=== PATIENT | female | born 1965 | race American Indian/Alaskan Native ===

== ENCOUNTER 2017-02-01 10:13 | Outpatient (CLI) | payer OTHER ==
--- NOTE | 2017-02-01 11:25 | XRay Report ---
AP AND LATERAL LUMBOSACRAL SPINE: The vertebral bodies are well mineralized and normal in alignment and vertebral height with well preserved interspace distances. The visualized portions of the posterior elements are normal. IMPRESSION: Unremarkable lumbar spine films.
--- NOTE | 2017-02-01 11:25 | XRay Report ---
RIGHT SHOULDER: Routine views demonstrate normal bony and soft tissue structures with normal joint alignment of the shoulder. IMPRESSION: Normal study.
--- NOTE | 2017-02-01 11:25 | XRay Report ---
RIGHT ANKLE, 3 views: History: Breast cancer, arthritis, asthma. Bone mineralization is normal. No acute osseous abnormality or joint pathology is identified. The soft tissues are unremarkable. IMPRESSION: Normal study.
== END 2017-02-01 10:14 | disposition home or self-care (01) ==
LOC: XRAY 10:13
PROVIDERS: ATTEND Internal Medicine
DX: M13.871 Other specified arthritis, right ankle and foot (principal); J45.909 Unspecified asthma, uncomplicated; Z85.3 Personal history of malignant neoplasm of breast
CPT/HCPCS: 72100

== ENCOUNTER 2017-03-01 09:24 | Outpatient (CLI) | payer OTHER ==
[2017-03-01] MEDS ORDERED: PROVENTIL IH ONE (09:47)
== END 2017-03-01 09:25 | disposition home or self-care (01) ==
LOC: PF 09:24
PROVIDERS: ATTEND Internal Medicine
DX: J45.909 Unspecified asthma, uncomplicated (principal); M19.90 Unspecified osteoarthritis, unspecified site; Z85.3 Personal history of malignant neoplasm of breast
CPT/HCPCS: 94060; 94640

== ENCOUNTER 2019-04-09 21:43 | Emergency (ER) | payer MEDICAID ==
[2019-04-09 21:51] VITALS: BP 107/65
--- NOTE | 2019-04-09 21:54 | Emergency Department Report ---
Blank Doc - Documentation Documentation: This is a 54-year-old female that presents with nausea and abdominal pain. Also stated has a cough. This initial assessment/diagnostic orders/clinical plan/treatment(s) is/are subject to change based on patient's health status, clinical progression and re- assessment by fellow clinical providers in the ED. Further treatment and workup at subsequent clinical providers discretion. Patient/guardians urged not to elope from the ED as their condition may be serious if not clinically assessed and managed. Initial orders include: 1- Patient sent to [facility] for further evaluation and treatment 2-labs 3- UA 4- CXR
[2019-04-09 22:09] LABS: Basophils % (Auto) 0.7 % (0.0-1.8); Eosinophils # (Auto) 0.3 K/mm3 (0.0-0.4); Eosinophils % (Auto) 5.5 % (0.0-4.3); Hematocrit 33.9 % (30.3-42.9); Hemoglobin 11.3 gm/dl (10.1-14.3); Lymphocytes # (Auto) 1.4 K/mm3 (1.2-5.4); Lymphocytes % (Auto) 27.1 % (13.4-35.0); Mean Corpuscular HGB Conc 33 % (30-34); Mean Corpuscular Volume 90 fl (79-97); Monocytes # (Auto) 0.7 K/mm3 (0.0-0.8); Monocytes % (Auto) 12.8 % (0.0-7.3); Platelet Count 270 K/mm3 (140-440); Red Blood Count 3.79 M/mm3 (3.65-5.03); Red Cell Distribution Width 14.3 % (13.2-15.2)
[2019-04-09 22:30] LABS: Alanine Aminotransferase 10 units/L (7-56); Albumin 3.8 g/dL (3.9-5); BUN/Creatinine Ratio 13; Blood Urea Nitrogen 9 mg/dL (7-17); Calcium 9.3 mg/dL (8.4-10.2); Hemolysis Index 10
--- NOTE | 2019-04-09 23:02 | XRay Report ---
CHEST PA AND LATERAL VIEWS INDICATION: cogh. COMPARISON: None FINDINGS: Support devices: None Heart: Normal Lungs/Pleura: No acute pulmonary or pleural findings. IMPRESSION: 1. Negative study. Signer Name: Rm Ferrer MD Signed: 04/09/2019 10:57 PM Workstation Name: [id number]
[2019-04-10] MEDS ORDERED: ULTRAM PO ONE (00:15)
[2019-04-10] MEDS ORDERED: ZOFRAN ODT PO ONE (00:15)
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
--- NOTE | 2019-04-10 01:07 | XRay Report ---
ABDOMEN 1 VIEW(S) INDICATION / CLINICAL INFORMATION: abd pain. COMPARISON: None available. FINDINGS: TUBES / LINES: None. BOWEL GAS PATTERN: No significant abnormality. FREE AIR / EXTRALUMINAL GAS: None seen. ADDITIONAL FINDINGS: No significant additional findings. IMPRESSION: 1. No significant abnormality. Signer Name: Rubin Gould MD Signed: 04/10/2019 1:03 AM Workstation Name: [id number]
[2019-04-10 01:48] LABS: Bilirubin,Urine NEG (Negative); Blood,Urine NEG (Negative); Color,Urine Straw (Yellow); Protein,Urine <15 mg/dL mg/dL (Negative); Urobilinogen,Urine < 2.0 mg/dL (<2.0); WBC,Urine < 1.0 /HPF (0.0-6.0)
== END 2019-04-10 03:02 | disposition home or self-care (01) ==
LOC: ED 21:43
DX: S39.011A Strain of muscle, fascia and tendon of abdomen, initial encounter (principal); J45.909 Unspecified asthma, uncomplicated; M19.90 Unspecified osteoarthritis, unspecified site; R05 Cough; X58.XXXA Exposure to other specified factors, initial encounter; Y93.89 Activity, other specified; Y92.89 Other specified places as the place of occurrence of the external cause; Y99.8 Other external cause status
CPT/HCPCS: 36415; 71046; 74018; 80053; 81001; 83690; 85025; Q0162

== ENCOUNTER 2020-07-06 16:16 | Emergency (ER) | payer OTHER, MEDICAID ==
[2020-07-06 16:44] VITALS: BP 110/69
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
== END 2020-07-06 18:21 | disposition home or self-care (01) ==
LOC: ED 16:16
DX: S13.4XXA Sprain of ligaments of cervical spine, initial encounter (principal); M19.91 Primary osteoarthritis, unspecified site; J45.909 Unspecified asthma, uncomplicated; Z98.890 Other specified postprocedural states; Z79.899 Other long term (current) drug therapy; V49.59XA Passenger injured in collision with other motor vehicles in traffic accident, initial encounter; Y93.89 Activity, other specified; Y92.410 Unspecified street and highway as the place of occurrence of the external cause; Y99.8 Other external cause status
CPT/HCPCS: 72040; 72100

== ENCOUNTER 2020-08-31 11:19 | Emergency (ER) | payer OTHER, MEDICAID ==
[2020-08-31 11:32] VITALS: BP 106/57
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
== END 2020-08-31 13:43 | disposition home or self-care (01) ==
LOC: ED 11:19
DX: S16.1XXA Strain of muscle, fascia and tendon at neck level, initial encounter (principal); S39.012A Strain of muscle, fascia and tendon of lower back, initial encounter; M19.91 Primary osteoarthritis, unspecified site; J45.909 Unspecified asthma, uncomplicated; Z98.890 Other specified postprocedural states; Z79.899 Other long term (current) drug therapy; V49.49XA Driver injured in collision with other motor vehicles in traffic accident, initial encounter; Y93.89 Activity, other specified; Y92.410 Unspecified street and highway as the place of occurrence of the external cause; Y99.8 Other external cause status
CPT/HCPCS: 99282

== ENCOUNTER 2020-11-18 07:20 | Emergency (ER) | payer MEDICAID ==
[2020-11-18 07:34] VITALS: BP 104/32
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
[2020-11-18] MEDS ORDERED: ACETAMINOPHEN 500 MG TAB PO ONE (07:48)
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
--- NOTE | 2020-11-18 09:36 | Cat Scan Report ---
CT cervical spine wo con INDICATION / CLINICAL INFORMATION: 55 years Female; trauma, neck pain.. TECHNIQUE: Axial CT images of the cervical spine were obtained. Sagittal and coronal reformatted images were pr oduced. All CT scans at this location are performed using CT dose reduction for ALARA by means of aut omated exposure control. COMPARISON: None available. FINDINGS: POST-SURGICAL CHANGES: None. ALIGNMENT: There is mild curvature the cervical spine, convex toward the left. There is no significan t spondylolisthesis. VERTEBRAE: There is no CT evidence of acute fracture of the cervical spine. INTRAVERTEBRAL DISCS: The intervertebral disc spaces are fairly well-maintained without CT evidence o f significant bony spinal stenosis. PARASPINAL SOFT TISSUES: No prevertebral soft tissue fluid collections are identified. ADDITIONAL FINDINGS: There is a nodular lesion involving the posterior limb of the right thyroid glan d with relative decreased attenuation in foci of calcification. This finding measures 1.7 cm in great est transverse dimension and is nonspecific. IMPRESSION: 1. There is no CT evidence of acute fracture of the cervical spine. 2. There is a 1.7 cm lesion involving the posterior lobe of the right thyroid gland as detailed above . INCIDENTAL THYROID NODULE (ITN) DETECTED ON CT OR MRI (1) * Suspicious CT or MRI findings (2) * Abnormal lymph nodes * ipsilateral nodes >1.5 cm in short axis (jugulodigastric) * ipsilateral nodes >1 cm in short axis (other) * Invasion of local tissues by the thyroid nodule * Evaluate with thyroid ultrasound (4) * No suspicious CT or MRI findings (2) * Limited life expectancy and comorbidities (3) * No further evaluation * General population * Age < 35 years * <1 cm -- No further evaluation * >= 1 cm -- Evaluate with thyroid ultrasound (4) * Age >= 35 years * <1.5 cm -- No further evaluation * >= 1.5 cm -- Evaluate with thyroid ultrasound (4) * Notes * (1) The recommendations are offered as general guidance and do not apply to all patients, such as those with clinical risk factors for thyroid cancer. * (2) Suspicious CT/MRI features include: abnormal lymph nodes and/or invasion of local tissues by t he thyroid nodule. Abnormal lymph node features include: calcifications, cystic components, and/or in creased enhancement. Sheng enlargement is less specific for thyroid cancer metastases, but further ev aluation could be considered if an ITN has ipsilateral nodes >1.5 cm in short axis for jugulodigastri c lymph nodes, and >1 cm for other lymph nodes. * (3) Limited life expectancy and comorbidities that increase the risk of treatment or are more like ly to cause morbidity and mortality than the thyroid cancer itself, given the nodule size; see text f or details. Patients with comorbidities or limited life expectancy should not have further evaluation of the ITN, unless it is warranted clinically, or specifically requested by the patient or referring physician. * (4) Further management of the ITN after thyroid ultrasound, including fine-needle aspiration, shou ld be based on ultrasound findings. J Am Faye Radiol 2015;12:143-150. Online: [email or web address] PDF: [email or web address] Signer Name: Francois Madison MD Signed: 11/18/2020 9:32 AM Workstation Name: [id number]
== END 2020-11-18 09:59 | disposition home or self-care (01) ==
LOC: ED 07:20
DX: S16.1XXA Strain of muscle, fascia and tendon at neck level, initial encounter (principal); S39.012A Strain of muscle, fascia and tendon of lower back, initial encounter; S29.011A Strain of muscle and tendon of front wall of thorax, initial encounter; M19.90 Unspecified osteoarthritis, unspecified site; J45.909 Unspecified asthma, uncomplicated; Z79.899 Other long term (current) drug therapy; V49.49XA Driver injured in collision with other motor vehicles in traffic accident, initial encounter; Y93.89 Activity, other specified; Y92.488 Other paved roadways as the place of occurrence of the external cause; Y99.8 Other external cause status
CPT/HCPCS: 70450; 71046; 72125; 99283